=== PATIENT | female | born 1975 | race Caucasian/White ===

== ENCOUNTER 2018-05-22 20:25 | Emergency (ER) | payer MEDICAID ==
[~2018-05-22] VITALS: Ht 165.1 cm; Wt 65.9 kg
--- NOTE | 2018-05-23 00:42 | ERD ---
ER Documentation Chief Complaint Chief Complaint HPI This is a 42-year-old female who presents to emerge department with complaints of nasal congestion, headache, light sensitivity for about 3 months. LMP: 04/04/2018. . Stated that 1 of her brothers boy got translated with the cord. Denies head injury, loss of consciousness, dizziness, neck pain, neck stiffness, throat pain, difficulty swallowing, difficulty breathing lying flat, shoulder pain, chest pain, back pain, abdominal pain, nausea, vomiting, constipation, diarrhea, urinary symptoms, or possibility being , loss of bowel and bladder control, trauma, injury, falls, difficulty walking due to pain, numbness or tingling sensation, calf pain, recent travel, recent major surgery in the last 3 weeks, calf pain, recent long travel, recent exposure to any illness, recent antibiotic use in the last 3 months, fever, chills, seizures. Past medical history: Surgical history: Social: Denies smoking, use of alcoholic beverages, use of illegal drugs. ROS All systems reviewed and are negative except as per history of present illness. Medications Home Meds Active Scripts Cmqymamdlb-Gveftseunovef-Irvwtteu* (Fioricet*) 50-300-40 Mg Capsule, 1 CAP PO Q4H PRN for HEADACHE, #15 CAP Prov:PASILABANCROWAR F 05/23/18 Ibuprofen* (Motrin*) 600 Mg Tab, 600 MG PO Q6H PRN for PAIN AND OR ELEVATED TEMP, #30 TAB Prov:PASILABAN,KLAR F 05/23/18 Meclizine Hcl* (Antivert*) 12.5 Mg Tab, 12.5 MG PO Q6H PRN for DIZZINESS, #20 TAB Prov:PASILABAN,CROWAR F 05/23/18 Metoclopramide* (Reglan*) 10 Mg Tablet, 10 MG PO Q6 PRN for NAUSEA AND/OR VOMITING, #20 TAB Prov:PASILABAN,KLAR F 05/23/18 Sulfamethoxazole/Trimethoprim* (Bactrim Ds* Tablet) 1 Each Tablet, 1 TAB PO BID, #14 TAB Prov:PASILABAN,KLAR F 05/23/18 Allergies Allergies: Coded Allergies: Penicillins (Verified Allergy, Unknown, 04/23/11) PMhx/Soc History of Surgery: Yes (head, ) Hx Neurological Disorder: Yes (seizure) Hx Respiratory Disorders: Yes (asthma) Hx Cardiac Disorders: Yes Hx Psychiatric Problems: No Hx Alcohol Use: No Hx Substance Use: No Hx Tobacco Use: No Smoking Status: Never smoker Physical Exam Vitals Physical Exam Const: No acute distress Head: Atraumatic Eyes: Normal Conjunctiva. No visual field loss. Good eye movement. ENT: Normal External Ears, Nose and Mouth. Bilateral ears: TMs are not erythematous. No bleeding. No discharge with no hearing loss. No mastoid tenderness. Nose: There is frontal and maxillary sinus tenderness to palpation. Throat: Uvula is in midline and nondisplaced. Tonsils are +1 bilaterally without redness and without exudates. Tolerating secretions. Patent airway. Speaks full and clear sentences. Neck: Full range of motion. No meningismus. No nuchal rigidity. No signs of meningeal irritation. Resp: Clear to auscultation bilaterally. Cardio: Regular rate and rhythm, no murmurs Abd: Soft, non tender, non distended. Normal bowel sounds Skin: No petechiae or rashes Back: No midline or flank tenderness Ext: No cyanosis, or edema Neur: Awake and alert. Romberg test is negative. No neurological deficit. Psych: Normal Mood and Affect Results 24 hrs Current Medications Medications Dose Sig/Prashant Start Time Status Last (Trade) Ordered Route PRN Stop Time Admin Dose Reason Admin 1 tab ONCE ONCE 05/23/18 DC 05/23/18 Acetaminophen PO 01:00 01:05 / 05/23/18 01:01 Hydrocodone Bitart ([place] (5/325)) 10 mg ONCE ONCE 05/23/18 DC 05/23/18 Metoclopramid PO 01:00 01:05 e HCl 05/23/18 01:01 (Reglan) 25 mg ONCE ONCE 05/23/18 DC 05/23/18 Diphenhydrami PO 01:00 01:05 ne HCl 05/23/18 01:01 (Benadryl) Procedures/MDM Diagnostic tests: Clinical exam. Treatment: [place] p.o. Reglan p.o. Benadryl p.o. Re-evaluation: Denies headache. No nuchal rigidity. No signs of meningeal irritation. Romberg test is negative. No neurological deficit. Differential diagnosis I have low suspicion for subarachnoid hemorrhage, stroke, meningitis, airway obstruction. Final diagnosis: Sinusitis. Migraine. Prescription: Fioricet. Motrin. Antivert. Reglan. Bactrim. Follow-up with PCP in the next 24-48 hours. Come back here in the emergency department for any new symptoms or any worsening symptoms. All questions and concerns were answered. Patient and family members verbalized understanding and agreed with plan of care. Hemodynamically stable on discharge. Departure Diagnosis: Primary Impression: Sinusitis Additional Impression: Migraine Condition: Stable Additional Instructions: Follow-up with PCP in the next 24-48 hours. PCP to refer patient to neurologist in the next 3-4 days. Come back to emerge department for any new symptoms and worsening symptoms. DOMINGO SPARROW May 23, 2018 00:42
[2018-05-23] MEDS ORDERED: SULF1TAB31 PO (00:52)
[2018-05-23] MEDS ORDERED: METO10TA92 PO (00:52)
[2018-05-23] MEDS ORDERED: IBUP-1542 PO (00:52)
[2018-05-23] MEDS ORDERED: MECL12.574 PO (00:52)
[2018-05-23] MEDS ORDERED: BUTA1CAP38 PO (00:53)
[2018-05-23] MEDS ORDERED: HYDROCODONE/APAP (5/325) TAB PO ONE (01:00)
[2018-05-23] MEDS ORDERED: DIPHENHYDRAMINE 25 MG CAP PO ONE (01:00)
[2018-05-23] MEDS ORDERED: METOCLOPRAMIDE 10 MG TAB PO ONE (01:00)
[2018-05-23 01:02] VITALS: BP 132/84; PULSE 65; RESP 16; Ht 165.1 cm; Wt 65.9 kg
== END 2018-05-23 03:08 | disposition home or self-care (01) ==
LOC: FTE 20:25
DX: J32.9 Chronic sinusitis, unspecified (principal); J45.909 Unspecified asthma, uncomplicated; G43.909 Migraine, unspecified, not intractable, without status migrainosus
CPT/HCPCS: Z7610 ×3; 99283